=== PATIENT | female | born 1965 | race Caucasian/White ===

== ENCOUNTER 2020-05-22 09:48 | Outpatient (REF) | payer MEDICARE, MEDICAID, SELFPAY ==
--- NOTE | 2020-05-22 10:00 | XR_ITS ---
EXAMINATION: XR LUMBOSACRAL SPINE CLINICAL INFORMATION: Low back pain COMPARISON: None TECHNIQUE: Three views of the lumbosacral spine. FINDINGS: Bone alignment is normal. No fracture or dislocation is seen. Disc spaces are normal. There is lower lumbar spine facet arthritis. XR/XR lumbar spine 2-3V IMPRESSION: Lower lumbar spine facet arthritis.
== END 2020-05-22 09:49 | disposition home or self-care (01) ==
LOC: HO.XRAY 09:48
PROVIDERS: PCP Internal Medicine; Visit Provider Internal Medicine
DX: M54.5 Low back pain (principal)
CPT/HCPCS: 72100

== ENCOUNTER 2025-03-03 14:28 | Outpatient (REF) | payer MEDICARE, MEDICAID, SELFPAY ==
--- OUTSIDE RECORDS SUMMARY | 2017-10-02 11:45 | XMS_ITS | Continuity of Care Document ---
Author Organization [facility] Address [address] [place] [address] Care Team Providers Care Slot Technician Name Role Phone Italia MCKINNEY, Man Unavailable Unavailable Allergies, Adverse Reactions, Alerts Substance Reaction Status Criticality latex Active No Information codeine Active No Information aspirin Active No Information Medications Medication Instructions Dosage Effective Dates (start - stop) Status Comments Xanax 2 mg tablet take 1 tablet by ora l route every bedtime 2 MG - Active Percocet 10 mg-325 mg tablet take 1 tablet by oral route every 6 hours as needed 1.00 tablet - Active Procedures Procedure Date OFFICE/OUTPATIENT VISIT, EST DRUG TEST [facility] CHEM ANLYZR OFFICE/OUTPATIENT VISIT, NEW DRUG TEST [facility] CHEM ANLYZR Results Test Name Date and Time Measure Units Reference Range Abnormal Flag Status Comments Panel Description: Urine Drug Screen Final Amphetamines Negative ng/mL 1000 Final Barbiturates Negative ng/mL 200 Final Benzodiazepines Negative ng/mL 200 Final Phencyclidine Negative ng/mL 25 Final Cocaine Metabolite Negative ng/mL 300 Jesusita l Methadone Metabolite (EDDP) Positive ng/mL 1000 H Final Oxycodone Negative ng/mL 100 Final THC Negative ng/mL 50 Final Ethyl Alcohol (ETOH) Negative mg/dL 100 Fi nal Ecstasy (MDMA) Negative ng/mL 500 Final Opiates Negative ng/mL 300 Final Advance Directives Directive Yes / No Effective Date File Name No Information Encounters Encounter Description Practice Location Reason(s) For Visit Diagnoses Date Provider Providers Copied on Encounter OFFICE/OUTPA TIENT VISIT, EST [facility], [address], [place], [place], [id number] , [facility] [place] low back pain (chief complaint) neck pain (chief complaint) Follow up chronic pain (chief complaint) CervicalgiaChronic pain syndromeLumbagoOther psychoactive substance abuse, uncomplicated 8 Le Man. [address], [address], [place], [place], [id number] , [place]. tel:[phone] OFFICE/OUTPA TIENT VISIT, [facility], [address], [place], [place], [id number] , [facility] [place] neck pain (chief complaint) low back pain (chief complaint) Chronic pain (chief complaint) Chronic pain syndromeLumbagoCervic algiaOther psychoactive substance abuse, uncomplicated 8 Le Man. [address] [facility], [address], [place], [place], [id number] , [place]. tel:[phone] Family History Family Member Type Diagnosis Age At Onset Father Problem (finding) Mother Problem (finding) Payers Payer name Insurance type Covered alliance party ID Authoriza tion(s) Medicare [facility] [id number] [employer] HMO CI [id number] Social History Type Description Quantity Date Captured Comments Alcohol Use Details Unknown Caffeine Use Details Unknown Tobacco Use Status Light cigarette smok er (1-9 cigs/day) Smoking Status Light tobacco smoker Smoking Tobacco Use Details Cigarette: No Details Available Cigarette: 1 Cigarettes per day Sex Female Vital Signs Date / Time: Height Weight BMI Pulse Rate Blood Pressure Temperature Respiratory Rate Body Surface Area Head Circumference Head Circ. Percentile Wt./Yuriy. Percentile BMI percentile Pulse Ox Inhaled Ox 3:24 PM 59.00 in 65.317 kg (144.00 lbs) 29.0 8 kg/m eter (2) 96 /min 149/94 mm[Hg] 1.65 meter(2) Chief Complaint And Reason For Visit From encounter dated '10/02/2017 16:45'. low back pain (chief complaint). Description: Onset: gradual without injury. Severity level is moderate-severe. Duration: > 1 hour. The problem is fluctuating. It occurs persistently. Location of pain is lower back. Pain is radiated to the left thigh, right thigh and RIGHT LEG.The patient describes the pain as burning, shooting, stabbing and throbbing. Symptoms are aggravated by changing positions, daily activities, lifting, pushing, sitting, standing, twisting and walking. Symptoms arerelieved by pain meds/drugs. neck pain (chief complaint). Description: Onset: gradual. The severity of the problem is moderate. Duration: > 1 hour. The problem has not changed. The frequency of pain is intermittent. Location of pain is bilateral anterior neck, bilateral lateral neck, bilateral posterior neck, bilateralshoulder and left arm. The patient describes the pain as discomforting and tingling. Aggravating factors include bending, flexion, lifting, straining, stress, turning head and walking. Associated symptoms include joint pain, muscle spasm, tingling and weakness. Pertinent negatives include bladder dysfunction not spinal related, bladder incontinence, bladder retention, bowel dysfunction not spinalrelated, bowel incontinence, bowel retention, decreased mobility, dermatomic rash, difficulty sleeping, dysphagia, incoordination, loss of balance, muscle atrophy, numbness, rash, sexual dysfunction,sexual dysfunction (not spinal related), tenderness and weight loss. Follow up chronic pain (chief complaint) Reason For Referral Reason For Referral No Information Plan Of Treatment Date Type Action Status Referral Ordered: MRI C-SPINE W/O CONTRAST ordered Referral Ordered: MRI L-SPINE W/O CONTRAST ordered History Of Present Illness Encounter Date Complaint History Of Prese nt Illness neck pain Onset: gradual. The severity of the problem is moderate. Duration: > 1 hour. The problem has not changed. The frequency of pain is intermittent. Location of pain is bilateral anterior neck, bilateral lateral neck, bilateral posterior neck, bilateral shoulder and left arm. The patient describes the pain as discomforting and tingling. Aggravating factors include bending, flexion, lifting, straining, stress, turning head and walking. Associated symptoms include joint pain, muscle spasm, tingling and weakness. Pertinent negatives include bladder dysfunction not spinal related, bladder incontinence, bladder retention, bowel dysfunction not spinal related, bowel incontinence, bowel retention, decreased mobility, dermatomic rash, difficulty sleeping, dysphagia, incoordination, loss of balance, muscle atrophy, numbness, rash, sexual dysfunction, sexual dysfunction (not spinal related), tenderness and weight loss. Follow up chronic pain Follow up chronic pain (comments ) Still at over 100mg of methadone a day at clinic. Has not done MRI. low back pain Onset: gradual w ithout injury. Severity level is moderate-severe. Duration: > 1 hour. The problem is fluctuating. It occurs persistently. Location of pain is lower back. Pain is radiated to the left thigh, right thigh and RIGHT LEG.The patient describes the pain as burning, shooting, stabbing and throbbing. Symptoms are aggravated by changing positions, daily activities, lifting, pushing, sitting, standing, twisting and walking. Symptoms are relieved by pain meds/drugs. Chronic pain (comments) Referred by Dr. Bon Wilkins down stairs about 8 years ago at work. Hurt back and neck. Did PT and chiropractor. Did not have surgery. Maintained on pain meds. h/o iv drug addiction. Goes to methadone clinic daily. Is on over 100mg methadone a day. Takes Percocet per Dr. Avila quezada. neck pain Onset: gradual. The severity of the problem is moderate. Duration: > 1 hour. The problem has not changed. The frequency of pain is constant. Location of pain is left lateral neck, left posterior neck and left shoulder. The patient describes the pain as aching, discomforting, piercing and sharp. Aggravating factors include lifting, prolonged sitting, rotation, straining, turning head and twisting. Associated symptoms include decreased mobility, joint pain, tenderness and weakness. Pertinent negatives include bladder dysfunction not spinal related, bladder incontinence, bladder retention, bowel dysfunction not spinal related, bowel incontinence, bowel retention, dermatomic rash, difficulty sleeping, dysphagia, incoordination, loss of balance, muscle atrophy, muscle spasm, numbness, rash, sexual dysfunction, sexual dysfunction (not spinal related), tingling and weight loss. Chronic pain low back pain Onset: gradual w ithout injury. Severity level is moderate-severe. Duration: > 1 hour. The problem is fluctuating. It occurs persistently. Location of pain is lower back. Pain is radiated to the left thigh and right thigh.The patient describes the pain as an ache, deep, discomforting, piercing, sharp and shooting. Symptoms are aggravated by ascending stairs, bending, changing positions, daily activities, descending stairs, lifting, pushing, sitting, standing, twisting and walking.The patient denies relieving factors. Functional Status Date Functional Assessmen t Pain Score 10/10 Instructions Date Instruction Additional Infor mation No Information Assessments Type Assessment Date assessment Cervicalgia assessment Chronic pain syndrome 8 assessment Lumbago assessment Other psychoactive substance abu se, uncomplicated Mental Status Date Cognitive Assessment Orientation - Laurier ed to time, place, person, situation. Patient Care Teams Name Effective Dates (start - stop) Status Members No Information
--- OUTSIDE RECORDS SUMMARY | 2024-05-13 08:09 | XMS_ITS | Continuity of Care Document ---
Author Organization [facility] Address [address] [place] [address] Phone Care Team Providers Care Art Coordinator Name Role Phone Quinn MCKINNEY, RVT, RPVI, Gabriel Unavailable U navailable Allergies, Adverse Reactions, Alerts Substance Reaction Status Criticality codeine Active No Information aspirin Active No Information latex Active No Information Medications Medication Instructions Dosage Effective Dates (start - stop) Status Comments OMEPRAZOLE (unknown strength) Not Available - Active IBUPROFEN (unknown strength) Not Available - Active Procedures Procedure Date Varithena, Single Truncal Vein - [place] & [place] Endovenous Laser, 1st Vein- [place] & [place] Ultrason Guidan Needle Bx-rad- [place] & [place] J Inj Sclerosing Solution; Sngl- [place] & [place] J Office/Outpt E&M Established 40 Mins- CT & [place] Duplex Scan-extrem Veins; Comp- CT & [place] Offic/outpt E&m Estab 5 Min Trial- Telem edicine CT & [place] Offic Cons New/estab Mod-hi 60- CT & [place] Duplex Scan-extrem Veins; Comp- CT & [place] Offic/outpt E&m Estab 5 Min Trial - Tele medicine Duplex Scan-extrem Veins; Comp 23 Offic Cons New/estab Mod-hi 60 Advance Directives Directive Yes / No Effective Date File Name No Information Encounters Encounter Description Practice Location Reason(s) For Visit Diagnoses Date Provider Providers Copied on Encounter [facility], [address] [place] [address] Dr Moore [address] [address], [id number], tel:[phone] [facility] - [place] - [place] No Information 5 Quinn MCKINNEY RVT, CHRISTIANE Rios. [address] [place] [address], [place], [id number], [place]. tel:[phone] [facility], [address] [place] [address] Dr Moore [address]Suite [place], [id number], tel:[phone] [facility] [place] Varicose veins of right lower extremity with other complication s 5 Quinn MCKINNEY RVT, CHRISTIANE Rios. [address] [place] [address], [place], [id number], [place]. tel:[phone] Referring Provider: Clau Morillo MD, [address] [place] [address], [address]. tel:[phone] [facility], [address] [place] [address] Dr Moore [address] [place] Mc[place], [id number], [place] tel:[phone] [facility] Varicose veins of right lower extremity with other complication s 5 Quinn MCKINNEY RVT, CHRISTIANE Rios. [address] [place] [address], [place], [id number], [place]. tel:[phone] Referring Provider: Clau Morillo MD, [address] [facility] [address], [place], [address]. tel:[phone] Office/Outpt E&M Established 40 Mins- [place] & [place] [facility], [address] [place] [address] Dr Moore [address] [place] Mc[place], [id number], tel:[phone] [facility] Varicose veins of bilateral lower extremities with other complication sLocalized edemaRestles s legs syndromeEsse ntial (primary) hypertension 4 Quinn MCKINNEY, MODESTA, CHRISTIANE Rios. [address] [place] [address], [place], [id number], [place]. tel:[phone] Referring Provider: Clau Morillo MD, [address] [address], [place], [address]. tel:[phone] [facility], [address] [place] [address] [address] Moore [address] [facility] [place], [id number], [place] tel:[phone] [place] Varicose veins of bilateral lower extremities with pain 4 Quinn MCKINNEY, MODESTA, CHRISTIANE Rios. [address] [place] [address], [place], [id number], [place]. tel:[phone] Referring Provider: Clau Morillo MD, [address] [place] [address], [place], [address]. tel:[phone] Offic/outpt E&m Estab 5 Min Trial- Telemedicine [place] & [place] [facility], [address] [place] [address] Dr Moore [address] [place] Mc[place], [id number], [place] tel:[phone] [place] Localized edemaRestles s legs syndromeVeno us insufficienc y (chronic) (peripheral) Essential (primary) hypertension 4 Sebas Ta. [address] [place] [address], [place], [id number], [place]. tel:[phone] Referring Provider: Clau Morillo MD, [address] [place] [address], [place], [address]. [phone] Offic Cons New/estab Mod-hi 60- [place] & [place] [facility], [address] [place] [address] Dr Moore [address] [place], [id number], [place] tel:[phone] [place] Varicose veins of bilateral lower extremities with other complication Sergey in right lower legPain in left lower legPain in right legRestless legs syndromeEsse ntial (primary) hypertension Pain in left legLocalized edema Jul- 4 Quinn MCKINNEY, MODESTA, CHRISTIANE Rios. [address] [facility], [address], [place], [id number], [place]. tel:[phone] Referring Provider: Clau Morillo MD, [address] [facility] [address] , [place], [address]. tel:[phone] [facility], [address] [place] [address] Dr [address], [id number], [place] tel:[phone] CV[place] Pain in right legPain in left leg 4 uQinn MCKINNEY RVT, CHRISTIANE Rios. [facility] [address] [facility], [place], [id number], [place]. tel:[phone] Referring Provider: Clau Morillo MD, [address] [place] [address], [place], [address]. tel:[phone] Offic/outpt E&m Estab 5 Min Trial - Telemedicine [facility], [address] [place] [address] [address], [id number], [place] tel:[phone] [place] Chronic venous htn w oth comp of bilateral low extrm 3 Oneal MCKINNEY FACS MODESTA Izaguirre. [address] [place] [address], [place], [address], [place]. tel:[phone] Referring Provider: Clau Morillo MD, [address] [place] [address] [address], [place], [address]. tel:[phone] [facility], [address] [place] [address] [address], [id number], [place] tel:[phone] [place] - [place] Chronic venous htn w oth comp of bilateral low extrm 3 Oneal MCKINNEY FACS MODESTA Izaguirre. [address] [place] [address], [address], [place], [address], [place]. tel:[phone] Referring Provider: Clau Morillo MD, [address] [facility] [address], [place], [address]. tel:[phone] Offic Cons New/estab Mod-hi 60 [facility], [address], [place], [id number], [place] tel:[phone] CVR - [facility] Varicose veins of bi low extrem w oth complication sLocalized edema 3 Mollitor PREKINDERGARTEN TEACHER Nae. [address] [facility], [address], [place], [place], [id number], [place]. tel:[phone] Referring Provider: Clau Morillo MD, [address] [facility] [address], [place], [address]. tel:[phone] Family History Family Member Type Diagnosis Age At Onset No Information Payers Payer name Insurance type Covered constitution party ID lulu wood(s) [facility] CI [id number] Social History Type Description Quantity Date Captured Comments Sex Female Smoking Status No Information Chief Complaint And Reason For Visit No Information Reason For Referral Reason For Referral No Information Plan Of Treatment Date Type Action Status Goal Diet education completed Goal Tobacco cessation counseling completed Goal Tobacco cessation counseling completed Goal Diet education completed Goal Tobacco cessation counseling completed Goal Tobacco cessation counseling completed Goal Tobacco cessation counseling completed Goal Diet education completed Referral Ordered: Weight management: Referral to physician timeframe: 3 Months (related to Body mass index (BMI) 22.0-22.9, adult) ordered Referral Ordered: Weight management: Referral to physician timeframe: 3 Months (related to Body mass index (BMI) 22.0-22.9, adult) ordered Referral Ordered: Weight management: Referral to physician timeframe: 3 Months (related to Body mass index (BMI) 26.0-26.9, adult) ordered History Of Present Illness Encounter Date Complaint History Of Prese nt Illness No Information Functional Status Date Functional Assessmen t No Information Instructions Date Instruction Additional Infor mation Diet education Related to Body mass index (BMI) 22.0-22.9, adult Giving Encouragement to exercise Related to Body mass index (BMI) 22.0-22.9, adult Lifestyle education Related to B ashley mass index (BMI) 22.0-22.9, adult Compression stocking usage as conservative measure Related to Varicose veins of bilateral lower extremities with other complications Patient education booklet given Related to Varicose veins of bilateral lower extremities with other complications Compression stocking usage as conservative measure Related to Localized edema Patient education booklet given Related to Localized edema Diet education Related to Body mass index (BMI) 22.0-22.9, adult Giving Encouragement to exercise Related to Body mass index (BMI) 22.0-22.9, adult Lifestyle education Related to B ashley mass index (BMI) 22.0-22.9, adult Patient education booklet given Related to Varicose veins of bilateral lower extremities with other complications Pre and post instruc tions reviewed and provided Related to Varicose veins of bilateral lower extremities with other complications Patient education booklet given Related to Chrn Vns Hyprtnsn w/Compl (Pain Edema Swelling); BILAT Pre and post instruc tions reviewed and provided Related to Varicose veins of bi low extrem w oth complications Patient education booklet given Related to Varicose veins of bi low extrem w oth complications Lifestyle education Related to B ashley mass index (BMI) 26.0-26.9, adult Giving Encouragement to exercise Related to Body mass index (BMI) 26.0-26.9, adult Diet education Related to Body mass index (BMI) 26.0-26.9, adult Assessments Type Assessment Date No Information Patient Care Teams Name Effective Dates (start - stop) Status Members No Information
--- NOTE | ~2025-03-03 | XR_ITS ---
EXAMINATION: XR LUMBOSACRAL SPINE CLINICAL INFORMATION: acute on chronic back pain. Recent fall COMPARISON: 05/22/2020. TECHNIQUE: Three views of the lumbosacral spine. FINDINGS: There is no scoliosis. There is a normal lordosis. There is a trace degenerative anterolisthesis of L4 on L5. Alignment is otherwise anatomic. There is no fracture, compression deformity, or suspicious bone lesion. There is normal facet alignment. Mild facet degeneration present L4-S1. Mild disc degeneration is present L4-5 and L5-S1. The sacrum is intact. 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 No soft tissue abnormalities. There are herniorrhaphy clips incidentally noted. XR/XR lumbar spine 2-3V IMPRESSION: 1. No acute bony abnormalities of the lumbar spine. 2. Mild degenerative spondylosis most notable L4-S1. Electronically signed by: Keyon Franz MD 03/03/2025 03:15 PM [facility] [place], [place]
--- OUTSIDE RECORDS SUMMARY | 2025-03-03 13:40 | XMS_ITS | Encounter Summary ---
Author Organization [employer] Address [address] [facility] 7t [place] [address] Care Team Providers Care Marble And Granite Polisher Name Role Phone Clau Morillo MD Primary Care Provider + Encounter Details Date Type Department Care Team (Late st Contact Info) Description 03/03/2025 1:40 PM EST Office Visit [facility] [address], [place] [phone] Acute midline low back pain, unspecified whether sciatica present (Primary Dx) Social History Tobacco Use Types Packs/Day Years Used Date Smoking Tobacco: Every Day Cigarettes Smokeless Tobacco: Never Alcohol Use Standard Drinks/Week Comments Never 0 (1 standard drink = 0.6 oz pur e alcohol) Housing Stability Answer Date Recorded What is your housing situation today? I have branden kelly 08/21/[address] you li ve. Do you have problems with any of the following? None of the above 08/21/2023 Food Insecurity Answer Date Recorded Within the past 12 months, y ou worried that your food would run out before you got money to buy more: Never True 08/21/2023 Within the past 12 months,th e food you bought just didn't last and you didn't have enough money to get more: Never True Transportation Answer Date Recorded In the past 12 months, has l ack of transportation kept you from medical appts, meetings, work or from getting things needed for daily living? No 08/21/2023 Utilities Answer Date Recorded In the past 12 months, has t he electric, gas, oil or water company threatened to shut off services in your home? No 08/21/2023 Depression Answer Date Recorded Patient Health Questionnaire-2 Score 0 06/11/2022 Comments Unknown Sex and Gender Information Value Date Recorded Sex Assigned at Female 02/25/2022 10:18 AM EDT Legal Sex Female 10:18 AM EDT Gender Identity Female 02/25/2022 10:18 AM EDT Sexual Orientation Straight 02/25/2022 10 :18 AM EDT documented as of this encounter Plan of Treatment Not on file documented as of this encounter Procedures Procedure Name Priority Date/Time Associated Diagnosis Comments XR LUMBAR SPINE 2-3 VIEWS Routine 03/03/2025 2:48 PM EST Acute midline low back pain, unspecified whether sciatica present documented in this encounter Results * XR Lumbar Spine 2-3 Views (03/03/2025 2:48 PM EST) Anatomical Region Laterality Modality Spine, L-spine Radiographic [place] ging 03/03/2025 2:48 PM EST Narrative 03/03/2025 3:17 [place] [address] XRay Report Signed Patient: Kale Solomon MR#: [id number] : 1965 Acct:[id number] Age/Sex: 59 / F ADM Date: 03/03/25 Loc: HO.HHCX Attending Dr: Hannah FIELDS Ordering Physician: Hannah Betts Date of Service: 03/03/25 Procedure(s): XR lumbar spine 2-3V Accession Number(s): [id number] cc: Hannah Betts Reason for Exam: acute on chronic back pain. Recent fall EXAMINATION: XR LUMBOSACRAL SPINE CLINICAL INFORMATION: acute on chronic back pain. Recent fall COMPARISON: 05/22/2020. TECHNIQUE: Three views of the lumbosacral spine. FINDINGS: There is no scoliosis. There is a normal lordosis. There is a trace degenerative anterolisthesis of L4 on L5. Alignment is otherwise anatomic. There is no fracture, compression deformity, or suspicious bone lesion. There is normal facet alignment. Mild facet degeneration present L4-S1. Mild disc degeneration is present L4-5 and L5-S1. The sacrum is intact. 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 No soft tissue abnormalities. There are herniorrhaphy clips incidentally noted. XR/XR lumbar spine 2-3V IMPRESSION: 1. No acute bony abnormalities of the lumbar spine. 2. Mild degenerative spondylosis most notable L4-S1. Electronically signed by: Keyon Franz MD 03/03/2025 03:15 PM [facility] Dictated By: Keyon Franz MD Signed By: <Electronically signed by Keyon Franz MD in OV> 03/03/25 1515 DD/ 1448 TD/TT: 03/03/25 1500 Metalsmith: Procedure Note Donotsandrainterpreter, Image - 03/03/[address] [address] XRay Report Signed Patient: Brigette Solomon#: [id number] : 1965Acct:[id number] Age/Sex: 59 / FADM Date: 03/03/25 Loc: HO.HHCX Attending Dr: Hannah FIELDS Ordering Physician: Hannah Betts Date of Service: 03/03/25 Procedure(s): XR lumbar spine 2-3V Accession Number(s): [id number] cc: Hannah Betts Reason for Exam: acute on chronic back pain. Recent fall EXAMINATION: XR LUMBOSACRAL SPINE CLINICAL INFORMATION: acute on chronic back pain. Recent fall COMPARISON: 05/22/2020. TECHNIQUE: Three views of the lumbosacral spine. FINDINGS: There is no scoliosis. There is a normal lordosis. There is a trace degenerative anterolisthesis of L4 on L5. Alignment is otherwise anatomic. There is no fracture, compression deformity, or suspicious bone lesion. There is normal facet alignment. Mild facet degeneration present L4-S1. Mild disc degeneration is present L4-5 and L5-S1. The sacrum is intact. 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 No soft tissue abnormalities. There are herniorrhaphy clips incidentally noted. XR/XR lumbar spine 2-3V IMPRESSION: 1. No acute bony abnormalities of the lumbar spine. 2. Mild degenerative spondylosis most notable L4-S1. Electronically signed by: Keyon Franz MD 03/03/2025 03:15 PM EST Dictated By: Keyon Franz MD Signed By: <Electronically signed by Keyon Franz MD in OV> 03/03/25 1515 DD/ 1448 TD/TT: 03/03/25 1500 Metalsmith: Hannahmilton Betts GEOTHERMAL PLANT MANAGER IMG XR PROCEDURES Final Result documented in this encounter Visit Diagnoses Diagnosis Acute midline low back pain, unspecified whether sciatica present- Primary documented in this encounter Care Teams Marble And Granite Polisher Relationship Specialty Start Date End Date Clau Morillo MD [address] [place] [address] PCP - General Family Medicine 12/11/16 documented as of this encounter
--- OUTSIDE RECORDS SUMMARY | 2025-03-03 17:43 | XMS_ITS | Clinical Summary ---
Author Organization [employer] Address [address] [facility] 7t [place] [address] Care Team Providers Care Contact Center Specialist Name Role Phone Clau Morillo MD Primary Care Provider + Allergies Active Allergy Reactions Criticality Noted Date Comments Aspirin Unknown 04/17/2010 Codeine 04/06/2012 Egg Protein-Containing Drug Products 02/12/2018 Latex Rash Low 06/10/2014 Medications albuterol (ProAir HFA) 108 (90 Base) MCG/ACT inhalerIndicat ions:Smoker inhale 2 puff by inhalation route every 4 - 6 hours as needed 18 g 3 5 Active acetaminophen (Tylenol Extra Strength) 500 MG tablet Take 2 tablets 3 times daily x 5 days then as needed every 6-8 hrs for pain 30 tablet 5 Active acetaminophen (Tylenol 8 Hour) 650 MG ER tablet Take 2 tablets (1,300 mg) by mouth every 8 (eight) hours. Do not crush, chew, or split. 30 tablet 5 03/03/20 25 Discontin ued(Thera py completed ) Diclofenac Sodium 1 % gel APPLY 1 APPLICATION TOPICALLY IF NEEDED IN THE MORNING AND AT BEDTIME (KNEE PAIN). 100 g 5 03/03/20 25 Discontin ued(Thera py completed ) Active Problems Problem Noted Date Diagnosed Date Closed fracture of six ribs of left side with routine healing 10/05/2024 Overview (10/05/2024): Dx 10/04/24 at [facility] Assessment & Plan (10/05/2024 11:48 AM EDT): Recommend frequent deep breathing to avoid atelectasis Take 1000mg Tylenol and 800mg Motrin every 8 hours around the clock for 5-7 days Use Diclofenac gel on areas of bruising or localized pain Grief 05/14/2022 IFG (impaired fasting glucose) 05/14/2022 Assessment & Plan (06/11/2022 10:07 AM EST): I have discussed with patient regarding increasing physicial activity and decrease calorie intake She is not on medications. Check labs and FU with me in 4-6 weeks. Knee pain 05/14/2022 Lumbar spondylosis 05/14/2022 Synovitis 05/14/2022 Opioid dependence 01/01/2018 Smoker 01/01/2018 Assessment & Plan (06/11/2022 10:06 AM EST): Counselled to cut down on cigarettes. She is not willinig to do it at this time due to increased stress. Visual impairment 01/01/2018 Obstructive sleep apnea syndrome 09/02/2013 Assessment & Plan (06/11/2022 10:06 AM EST): Uses CPAP but not every night. Recommended to use CPAP every night, has nasal mask. Pt needs to continue using CPAP to decrease morbidity and mortality. 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 Counseled re low salt diet/increase moderate physical activity. Check home BP BIW and prn CP/HORN/THOMPSON. No medications at this time. Gastroesophageal reflux disease 10/04/2011 Assessment & Plan (06/11/2022 10:08 AM EST): Counseled to quit smoking and use omeprazole prn. Neck pain 10/04/2011 Pure hypercholesterolemia 10/04/2011 Resolved Problems Problem Noted Date Diagnosed Date Resolved Date Encounter for preventive health examination 06/11/2022 10/05/2024 Assessment & Plan (06/11/2022 10:01 AM EST): Discussed with patient re increase fresh fruit and vegetable intake. Counseled re moderate exercise as tolerated, up to 20min/d Patient feels safe at home. PAP smear will schedule appointment after the next visit. Mammogram TBO Eye exam will refer to optometry CRC screen refer to GI for colonoscopy Lipids/FBS TBO Vaccinations can't get influenza vaccination due to allergy Tinea pedis 06/10/2022 10/05/2024 Homeless 05/14/2022 10/05/2024 Encounters Date Type Department Care Team Description 03/03/2025 1:40 PM EST Office Visit [facility] [address] [place] [address] Acute midline low back pain, unspecified whether sciatica present (Primary Dx) 03/03/2025 Travel 03/01/2025 Telephone [facility] [address] [place] [address] Clau Morillo MD Nurse Triage from Last 3 Months Immunizations Immunization Administration Dates Next Due Hep B, adult 02/18/2007 Influenza, IIV3, injectable 12/18/2010 MMR 06/20/2010 Pfizer Covid-19 Vaccine 12+ 04/29/2021, 1 TD (adult), 2 Lf tetanus tox oid, preservative free, adsorbed 12/16/2007 Social History Tobacco Use Types Packs/Day Years Used Date Smoking Tobacco: Every Day Cigarettes Smokeless Tobacco: Never Tobacco Cessation:Ready to Q uit: Not Asked; Counseling Given: Not Answered Alcohol Use Standard Drinks/Week Comments Never 0 (1 standard drink = 0.6 oz pur e alcohol) Housing Stability Answer Date Recorded What is your housing situation today? I have branden sing 08/21/[address] you li [...] Orientation Straight 02/25/2022 10 :18 AM EDT Last Filed Vital Signs Vital Sign Reading Time Taken Comments Blood Pressure 139/86 06/11/2022 9:35 AM EST Pulse 71 06/11/2022 9:35 AM EST Temperature 36.4 C (97.6 F) 06/11/2022 9:35 AM EST Respiratory Rate 20 06/11/2022 9:35 AM EST Oxygen Saturation 97% 06/11/2022 9:35 AM EST Inhaled Oxygen Concentration - - Weight 63 kg (139 lb) 06/11/2022 9:35 AM EST Height 149.9 cm (4' 11 ) 06/11/2022 9:35 AM EST Body Mass Index 28.07 06/11/2022 9:35 AM EST Plan of Treatment Health Maintenance Due Date Last Done Comments CT Colonography 1965 Colonoscopy 1965 Colorectal Cancer Screening 1965 FIT DNA/Cologuard 1965 FIT 1965 FOBT 1965 Sigmoidoscopy 1965 Disability Screening 1965 Alcohol/Substance Use Screening 1976 Pneumococcal Vaccine: 50+ Years (1 of 2 - PCV) 07/27/1983 Mammogram 2004 Hepatitis B Vaccines (2 of 3 - 19+ 3-dose series) 03/18/2007 02/18/2007 DTaP/Tdap/Td Vaccines (1 - Tdap) 12/17/2007 12/16/2007 Zoster Vaccines (1 of 2) 2014 Depression Screening 06/11/2023 06/11/2022, 06/11/2022 SDOH Screening 08/20/2024 08/21/2023 COVID-19 Vaccine (3 - 2024-2 6 season) 2024 04/29/2021, 09/12/2020 Influenza Vaccine (#1) 2024 12/18/2010 Tobacco Screening 10/05/2025 10/05/2024 Lipid Panel 10/10/2025 10/10/2020, 02/03/2020 RSV Patients and Patients Aged 60 years or older (1 - 1-dose 75+ series) 07/27/2039 HIV Screening Completed 02/03/2020 Hepatitis C Screening Completed 02/03/2020 HIB Vaccines Aged Out No longer eligi ble based on patient's age to complete this topic HPV Vaccines Aged Out No longer eligi ble based on patient's age to complete this topic Hepatitis A Vaccines Aged Out No long er eligible based on patient's age to complete this topic IPV Vaccines Aged Out No longer eligi ble based on patient's age to complete this topic Meningococcal B Vaccine Aged Out No l onger eligible based on patient's age to complete this topic Meningococcal Vaccine Aged Out No vidya mendez eligible based on patient's age to complete this topic RSV under 20 months Aged Out No longe r eligible based on patient's age to complete this topic Rotavirus Vaccines Aged Out No longer eligible based on patient's age to complete this topic Procedures Procedure Name Priority Date/Time Associated Diagnosis Comments XR LUMBAR SPINE 2-3 VIEWS Routine 03/03/2025 2:48 PM EST Acute midline low back pain, unspecified whether sciatica present LIPID PANEL, STANDARD Routine 10/10/2020 8:49 AM EDT ZZZ HISTORICAL HEPATITIS C AB W/REFL TO HCV RNA, QN, PCR Routine 02/03/2020 8:58 AM EDT HIV 1/2 ANTIGEN/ANTIBODY, FOURTH GENERATION W/RFL Routine 02/03/2020 8:58 AM EDT from Last 3 Months or Most Recently Relevant to Health Maintenance Results * XR Lumbar Spine 2-3 Views (03/03/2025 2:48 PM EST) Anatomical Region Laterality Modality Spine, L-spine Radiographic [place] ging 03/03/2025 2:48 PM EST Narrative 03/03/2025 3:17 PM EST [facility] [address] [place] [address] XRay Report Signed Patient: Kale Solomon MR#: [id number] : 1965 Acct:[id number] Age/Sex: 59 / F ADM Date: 03/03/25 Loc: HO.HHCX Attending Dr: Hannah FIELDS Ordering Physician: Hannah Betts Date of Service: 03/03/25 Procedure(s): XR lumbar spine 2-3V Accession Number(s): [id number] cc: Hannah Betts Reason for Exam: acute [...] 03/03/25 1515 DD/ 1448 TD/TT: 03/03/25 1500 Casework Supervisor: Procedure Note Donotuseinterpreter, Image - 03/03/2025 [facility] [address] [place] [address] XRay Report Signed Patient: Brigette Solomon#: [id number] : 1965Acct:[id number] Age/Sex: 59 / FADM Date: 03/03/25 Loc: HO.HHCX Attending Dr: Hannah FIELDS Ordering Physician: Hannah Betts Date of Service: 03/03/25 Procedure(s): XR lumbar spine 2-3V Accession Number(s): [id number] cc: Hannah Betts Reason for Exam: acute [...] by: Keyon Franz MD 03/03/2025 03:15 PM [facility] Dictated By: Keyon Franz MD Signed By: <Electronically signed by Keyon Franz MD in OV> 03/03/25 1515 DD/ 1448 TD/TT: 03/03/25 1500 Casework Supervisor: Hannah FIELDS IMG XR PROCEDURES Final Result * (ABNORMAL) LIPID PANEL, STANDARD (10/10/2020 8:49 AM EDT) Chol/HDLC Ratio 5.4(H) <5.0 (calc) [facility] Cholesterol, Total 255(H) <200 mg/dL [facility] HDL Cholesterol 47(L) > OR = 50 mg/dL [facility] LDL Cholesterol 163(H) mg/dL (calc) [facility] Comment: Reference range: <100 Desirable range <100 mg/dL for primary prevention; <70 mg/dL for patients with CHD or diabetic patients with > or = 2 CHD risk factors. LDL-C is now calculated using the Lisandro-Welsh calculation, which is a validated novel method providing better accuracy than the Friedewald equation in the estimation of LDL-C. Lisandro SS et al. ROMI. 2013;310(19): 7241-0530 (http://education.[employer]/faq/LIY793) Non-HDL Cholesterol 208(H) <130 mg/dL (calc) [facility] Comment: For patients with diabetes plus 1 major ASCVD risk factor, treating to a non-HDL-C goal of <100 mg/dL (LDL-C of <70 mg/dL) is considered a therapeutic option. Triglycerides 273(H) <150 mg/dL [facility] Comment: If a non-fasting specimen was collected, consider repeat triglyceride testing on a fasting specimen if clinically indicated. Alina et al. J. of Clin. Lipidol. 2015;9:129-169. 10/10/2020 8:49 AM EDT us Clau Morillo MD LAB BLOOD ORDERABLES Fin al Result [facility] [address] * HEPATITIS C AB W/REFL TO HCV RNA, QN, PCR (02/03/2020 8:58 AM EDT) [facility] HEPATITIS C ANTIBODY NON-REACT MAXINE NON-REACT MAXINE [facility] INDEX 0.09 <1.00 [facility] Comment: HCV antibody was non-reactive. There is no laboratory evidence of HCV infection. In most cases, no further action is required. However, if recent HCV exposure is suspected, a test for HCV RNA (test code 81008) is suggested. For additional information please refer to http://Zenbox.Ujogo/faq/UEM13w2 (This link is being provided for informational/ educational purposes only.) HEPATITIS C ANTIBODY NON-REACT MAXINE NON-REACT MAXINE [facility] INDEX 0.09 <1.00 [facility] Comment: HCV antibody was non-reactive. There is no laboratory evidence of HCV infection. In most cases, no further action is required. However, if recent HCV exposure is suspected, a test for HCV RNA (test code 03556) is suggested. For additional information please refer to http://Zenbox.Ujogo/faq/AOM70e8 (This link is being provided for informational/ educational purposes only.) HEPATITIS C ANTIBODY NON-REACT MAXINE NON-REACT MAXINE [facility] INDEX 0.09 <1.00 [facility] Comment: HCV antibody was non-reactive. There is no laboratory evidence of HCV infection. In most cases, no further action is required. However, if recent HCV exposure is suspected, a test for HCV RNA (test code 14676) is suggested. For additional information please refer to http://WorkSimple/faq/RGC35i9 (This link is being provided for informational/ educational purposes only.) 02/03/2020 8:58 AM EDT Clau Morillo MD HISTORICAL/NON ORDERABLE LABS Final Result [facility] [address] * HIV 1/2 ANTIGEN/ANTIBODY,FOURTH GENERATION W/RFL (02/03/2020 8:58 AM EDT) HIV-1/2 ANTIGEN AND ANTIBODIES, 4TH GENERATION W/ REFLEX NON-REACT MAXINE NON-REACT MAXINE [facility] Comment: HIV-1 antigen and HIV-1/HIV-2 antibodies were not detected. There is no laboratory evidence of HIV infection. PLEASE NOTE: This information has been disclosed to you from records whose confidentiality may be protected by state law. If your state requires such protection, then the state law prohibits you from making any further disclosure of the information without the specific written consent of the person to whom it pertains, or as otherwise permitted by law. A general authorization for the release of medical or other information is NOT sufficient for this purpose. For additional information please refer to http://Zenbox.Ujogo/faq/NTX286 (This link is being provided for informational/ educational purposes only.) The performance of this assay has not been clinically validated in patients less than 2 years old. HIV-1/2 ANTIGEN AND ANTIBODIES, 4TH GENERATION W/ REFLEX NON-REACT MAXINE NON-REACT MAXINE [facility] Comment: HIV-1 antigen and HIV-1/HIV-2 antibodies were not detected. There is no laboratory evidence of HIV infection. PLEASE NOTE: This information has been disclosed to you from records whose confidentiality may be protected by state law. If your state requires such protection, then the state law prohibits you from making any further disclosure of the information without the specific written consent of the person to whom it pertains, or as otherwise permitted by law. A general authorization for the release of medical or other information is NOT sufficient for this purpose. For additional information please refer to http://Zenbox.Ujogo/faq/OCI143 (This link is being provided for informational/ educational purposes only.) The performance of this assay has not been clinically validated in patients less than 2 years old. 02/03/2020 8:58 AM EDT us Clau Morillo MD LAB BLOOD ORDERABLES Fin al Result Performing Organization Address City/State/[facility] Co de Phone Number [facility] [address] from Last 3 Months or Most Recently Relevant to Health Maintenance Insurance [facility] ONE CARE < 65 Care Teams Contact Center Specialist Relationship Specialty Start Date End Date Clau Morillo MD [address] [place] [phone] PCP - General Family Medicine 12/11/16
--- OUTSIDE RECORDS SUMMARY | 2025-03-03 17:43 | XMS_ITS | Encounter Summary ---
Author Organization [employer] Address [address] [facility] [address]t [place] [address] Care Team Providers Care Hvac Service Technician Name Role Phone Clau Morillo MD Primary Care Provider + Encounter Details Date Type Department Care Team (Latest Contact Info) Description 03/03/2025 Travel Social History Tobacco Use Types Packs/Day Years Used Date Smoking Tobacco: Every Day Cigarettes Smokeless Tobacco: Never Alcohol Use Standard Drinks/Week Comments Never 0 (1 standard drink = 0.6 oz pur e alcohol) Housing Stability Answer Date Recorded What is your housing situation today? I have brandenlourdes kelly 08/21/[address] you [...] on file documented as of this encounter Visit Diagnoses Not on filedocumented in this encounter Care Teams Hvac Service Technician Relationship Specialty Start Date End Date Clau Morillo MD [address] [place] [id number] PCP - General Family Medicine 12/11/16 documented as of this encounter
--- OUTSIDE RECORDS SUMMARY | 2025-03-03 17:44 | XMS_ITS | Encounter Summary ---
Author Organization [employer] Address [address] [place] [address] Care Team Providers Care Platform Architect Name Role Phone Clau Morillo MD Primary Care Provider + Reason for Visit * Reason Onset Date Comments Nurse Triage 03/01/2025 Encounter Details Date Type Department Care Team ([facility] st Contact Info) Description 03/01/2025 Telephone [facility] [address], [place] [phone] Clau Morillo MD [address] [place] [address] Nurse Triage Social History Tobacco Use Types Packs/Day Years Used Date Smoking Tobacco: Every Day Cigarettes Smokeless Tobacco: Never Alcohol Use Standard Drinks/Week Comments Never 0 (1 standard drink = 0.6 oz pur e alcohol) Housing Stability Answer Date Recorded What is your housing situation today? I have branden leticia 08/21/[address] you li [...] AM EDT documented as of this encounter Miscellaneous Notes * Telephone Encounter - Joan Waters RN - 03/03/2025 1:38 PM EST TC placed to patient [phone] however no answer, RN left VM requesting CB to red team nurses. TC placed [phone] however number is OOS. Patient to f/u PRN (letter already sent to patient yesterday). * Telephone Encounter - Ayana Mcdaniel RN - 03/03/2025 10:19 AM EST Returned call to pt at [phone], number not in service. Returned call to pt at [phone], no answer, left voicemail to call back [facility] and ask for red team nurses. * Telephone Encounter - Radha Doyle - 03/03/2025 10:09 AM EST Tc from pt retuning call * Telephone Encounter - Lauren Stauffer RN - 03/02/2025 11:50 AM EST TC x3 placed to patient [phone] regarding below message. RN left an VM for the patient to CB Red team nurses. RN will send an letter. TC x2 placed to [phone] regarding below message. The person on the other line reported this isthe wrong number for the patient. * Telephone Encounter - Lauren Stauffer RN - 03/01/2025 11:43 AM EST TC x2 placed to patient [phone] regarding below message. RN left an VM for the patient to CB Red team nurses. RN will send an message to the Red team for status check on 03/02/2025. * Telephone Encounter - Lauren Stauffer RN - 03/01/2025 11:14 AM EST TC placed to patient [phone] regarding below message. RN left an VM for the patient to CB Red team nurses. RN will re-attempt. TC placed to patient [phone] regarding below message. RN unable to leave an VM d/t phone number not in service. TC placed to patient [phone] regarding below message. RN left an message for the patient to [facility] team nurses. * Telephone Encounter - Gabriel Phillips - 03/01/2025 10:54 AM EST Symptom: Back Pain - Not From Injury Outcome: Transfer to a nurse or provider NOW! Reason: Age over 29: sudden AND severe upper back pain The caller accepted this outcome. Contact pt at [phone] documented in this encounter Plan of Treatment Not on file documented as of this encounter Visit Diagnoses Not on filedocumented in this encounter Care Teams Platform Architect Relationship Specialty Start Date End Date Clau Morillo MD [address] [place] [id number] PCP - General Family Medicine 12/11/16 documented as of this encounter
== END 2025-03-03 14:29 | disposition home or self-care (01) ==
LOC: HO.HHCX 14:28
PROVIDERS: Visit Provider Nurse Practitioner Family
DX: M54.50 Low back pain, unspecified (principal)
CPT/HCPCS: 72100

== ENCOUNTER → 2025-03-03 14:29 | Outpatient (BNV) | payer MEDICARE, MEDICAID, SELFPAY | PROVIDERS: Visit Provider Radiology Diagnostic Radiology | DX: M47.817 Spondylosis without myelopathy or radiculopathy, lumbosacral region (principal); Z04.3 Encounter for examination and observation following other accident | CPT/HCPCS: 72100 ==